=== PATIENT | male | born 1965 | race Caucasian/White ===

== ENCOUNTER 2017-04-25 22:48 | Emergency (ER) | payer OTHER ==
[~2017-04-25] VITALS: Wt 77.0 kg
[~2017-04-25 22:48] MED LIST: BENZ11.92 MM; CEPH-443; CEPH-443 PO; CLOT15CR55 TOP; CYCL-319 PO; HYDR-3498 PO; HYDR1CAP18; IBUP-1542 PO; KETOCONAZOLE; ORA20G7 BU; SULF1TAB80; VALA1000 PO
[2017-04-26] MEDS ORDERED: NAPR-260 PO (00:39)
[2017-04-26] MEDS ORDERED: AMOX1TAB10 PO (00:39)
--- NOTE | 2017-04-26 02:33 | ERD ---
ER Documentation Chief Complaint Date/Time DATE: 04/26/17 TIME: 02:29 Chief Complaint facial weakness x3 days. Pain in the jaw HPI 51-year-old male coming in complaining of swelling to his right cheek 2 days. Patient states he was eating earlier today and suddenly his right cheek began to swell. He has no dental pain. He has no ear pain. Denies any neck pain. No fevers. He has never had this before and has not taken medications for his symptoms. ROS All systems reviewed and are negative except as per history of present illness. Medications Home Meds Active Scripts Naproxen* (Naprosyn*) 500 Mg Tablet, 500 MG PO BID Y for PAIN AND/OR INFLAMMATION, #30 TAB Prov:EL BARBER PA-C 04/26/17 Amoxicillin/Potassium Clav (Amox-Clav 875-125 mg Tablet) 875-125 mg Tab, 1 TAB PO BID for 7 Days, #14 TAB Prov:EL BARBER PA-C 04/26/17 Cyclobenzaprine Hcl* (Cyclobenzaprine Hcl*) 10 Mg Tablet, 10 MG PO TID, #15 TAB Prov:EDER CADE NP 01/15/16 Ibuprofen* (Motrin*) 600 Mg Tab, 600 MG PO Q6H Y for PAIN AND OR ELEVATED TEMP, #30 TAB Prov:EDER CADE CONVERSION WORKER 01/15/16 Hydrocodone Bit-Acetaminophen* (Fitzpatrick*) 5-325 Mg Tab, 1 TAB PO Q6 Y for PAIN, # 20 TAB Prov:EDER CADE NP 01/15/16 Ibuprofen* (Motrin*) 600 Mg Tab, 600 MG PO Q6, #30 TAB Prov:EL BARBER PA-C 01/06/16 Cephalexin* (Keflex*) 500 Mg Capsule, 500 MG PO QID for 5 Days, CAP Prov:EL BARBER PA-C 01/06/16 Benzocaine* (Orajel Maximum*) 1 Applic Gel, 1 APPLIC BU TID, #1 EA Prov:EL BARBER PA-C 05/19/15 Clotrimazole (Anti-Fungal) 15 Gm Cream.gm., 1 APPLIC TOP BID, #1 TUB Prov:SU AGUILA DO 03/17/15 Valacyclovir Hcl* (Valacyclovir Hcl*) 1,000 Mg Tablet, 1000 MG PO BID, #14 TAB Prov:SU AGUILA DO 03/17/15 Benzocaine (Orabase) 11.9 Gm Paste..g., 1 APPLIC MM QID, #1 EA Prov:SU AGUILA DO 03/17/15 Reported Medications Cephalexin* (Keflex*) 500 Mg Capsule 02/18/10 Hydrocodone Bit/Acetaminophen (Dolacet 5/500 Capsule) 1 Cap Capsule 02/18/10 [Ketoconazole] No Conflict Check 02/14/10 Sulfamethoxazole-Trimethoprim* (Bactrim* SS) 1 Tab Tablet 02/14/10 Allergies Allergies: Coded Allergies: No Known Drug Allergies (Verified Allergy, Mild, 01/14/16) Uncoded Allergies: NONE (Allergy, Mild, 02/14/10) PMhx/Soc History of Surgery: Yes (Appendectomy) Anesthesia Reaction: No Hx Neurological Disorder: No Hx Respiratory Disorders: No Hx Cardiac Disorders: Yes (cholesterol) Hx Psychiatric Problems: No Hx Miscellaneous Medical Probl: No Hx Alcohol Use: Yes (Occasional) Hx Substance Use: No Hx Tobacco Use: No Smoking Status: Former smoker Physical Exam Vitals Vital Signs Date Time Temp Pulse Resp B/P Pulse Ox O2 Delivery O2 Flow Rate FiO2 04/25/17 23:04 98.5 63 20 126/61 98 Physical Exam GENERAL: The patient is well-appearing, well-nourished, in no acute distress HEENT: Atraumatic. Conjunctivae are pink. Pupils equal, round, and reactive to light. There is no scleral icterus. Tympanic membranes clear bilaterally. Oropharynx clear. No nystagmus or photophobia. Swelling noted to the right jaw. Mild tenderness to palpation over the right jaw. NECK: C-spine is soft and supple. There is no meningismus. There is no cervical lymphadenopathy. No JVD. No bruits. No goiter. CHEST: Clear to auscultation bilaterally. There are no rales, wheezes or rhonchi. HEART: Regular rate and rhythm. No murmurs, clicks, rubs or gallops. No S3 or S4. SKIN: There is no apparent rash or petechiae. The skin is warm and dry. Procedures/MDM MDM: I have low suspicion for dental abscess or facial abscess. I have low suspicion for retained foreign body. A low suspicion for bony injury. Patient likely has salivary duct obstruction. I will treat patient prophylactically with antibiotics. Patient is discharged with strict ER precautions. I recommended patient to use lemon drops hard candies to increase salivation. Departure Diagnosis: Primary Impression: Sialadenitis Condition: Stable Patient Instructions: Salivary Duct Obstruction Referrals: NAVEEN TYLER MD Additional Instructions: FOLLOW UP WITH YOUR PRIMARY CARE PHYSICIAN TOMORROW.Return to this facility if you are not improving as expected. EL BARBER PA-C Apr 26, 2017 02:33
== END 2017-04-26 01:03 | disposition home or self-care (01) ==
LOC: FTE 22:48
DX: K11.20 Sialoadenitis, unspecified (principal); Z87.891 Personal history of nicotine dependence
CPT/HCPCS: 99283